=== PATIENT | male | born 1990 | race Caucasian/White ===

== ENCOUNTER 2020-09-11 15:30 | Emergency (ER) | payer SELFPAY ==
[~2020-09-11] VITALS: Ht 160 cm; Wt 68.0 kg
[2020-09-11] MEDS ORDERED: LORAZEPAM 1MG TABLET PO ONE (16:45)
[2020-09-11 16:54] LABS: BASOPHILS % 0.5 % (0.0-2.0); HEMATOCRIT. 47.3 % (42.0-52.0); HEMOGLOBIN. 16.1 g/dL (14.0-18.0); LYMPHOCYTES % 19.5 % (20.0-50.0); MEAN CORPUSCULAR HEMOGLOBIN 29.7 pg (28.0-32.0); MEAN CORPUSCULAR VOLUME 87.2 fL (80.0-94.0); MEAN PLATELET VOLUME 8.2 fl (7.4-10.4); MONOCYTES % 7.4 % (2.0-8.0); NEUTROPHILS % 71.6 % (40.0-76.0); PLATELET 332 x1000/uL (130-400); RED BLOOD CELL COUNT 5.43 mill/uL (4.7-6.1)
[2020-09-11 17:04] LABS: CHLORIDE 99 mEq/L (98-107)
[2020-09-11] MEDS ORDERED: OLANZAPINE 10MG TABLET PO SCH (17:30)
[2020-09-11] MEDS ORDERED: LORAZEPAM 2MG/ML CPJ IV ONE (18:30)
[2020-09-12 05:25] VITALS: BP 115/72
== END 2020-09-12 05:38 | disposition home or self-care (01) ==
LOC: ER 15:30
DX: F15.129 Other stimulant abuse with intoxication, unspecified (principal); F17.210 Nicotine dependence, cigarettes, uncomplicated
CPT/HCPCS: 36415; 80048; 84484; 85025; 96374; 99285; J2060